=== PATIENT | female | born 1945 | race Hispanic/Latino ===

== ENCOUNTER 2017-04-05 09:56 | Outpatient (CLI) | payer MEDICARE ==
--- NOTE | 2017-04-05 11:49 | Mammography Report ---
BONE DEXA:04/05/17 09:56:00 CLINICAL: Postmenopausal. No comparison. TECHNIQUE: Two site bone DEXA performed on an Hologic scanner. FINDINGS: The average BMD of the lumbar spine L1-L4 is 0.770g/cm squared with a T-score of -2.5 and a Z-score of -0.3. The average BMD of the left hip is 0.708g/cm squared with a T-score of -1.9 and a Z-score of -0.3. IMPRESSION: 1. WHO classification: Osteoporosis with I. fracture risk based on lumbar spine measurements. 2. WHO classification: Osteopenia with increased fracture risk based on left hip measurements. RECOMMENDATION: Clinical correlation and routine screening. DEFINITIONS: BMD = Bone Mineral Density T-score = BMD related to mean peak bone mass of young adult (mean expressed in Standard Deviation) Z-score = Age matched BMD expressed in SD World Health Organization (WHO) Diagnostic Criteria Normal T-score > -1 SD Osteopenia T-score between -1 and -2.4 SD Osteoporosis T-score -2.5 SD or below NOTE: BMD is not the only risk factor for fracture. One should also consider factors such as the patient's age, risk of falling, previous osteoporotic fracture, family history of osteoporotic fractures, current smoker, and low body weight. Z-scores are not calculated if >80 years of age.
== END 2017-04-05 09:57 | disposition home or self-care (01) ==
LOC: SPVWC 09:56
PROVIDERS: ATTEND Family Medicine
DX: M81.0 Age-related osteoporosis without current pathological fracture (principal); M85.88 Other specified disorders of bone density and structure, other site; Z78.0 Asymptomatic menopausal state
CPT/HCPCS: 77080

== ENCOUNTER 2018-05-16 08:50 | Outpatient (CLI) | payer MEDICARE ==
--- NOTE | 2018-05-16 12:49 | Ultrasound Report ---
THYROID ULTRASOUND:05/16/18 08:50:00 CLINICAL: Abnormal thyroid test. FINDINGS: High-resolution ultrasound demonstrated a normal size thyroid with normal contour and normal overall echogenicity. No mass, nodule or cyst. The right lobe measures 3.5 x 1.4 x 1.1cm. The left lobe measures 3.3-1.5 x 1.0. The isthmus measures 1.9 mm AP thickness. IMPRESSION: Normal thyroid.
== END 2018-05-16 08:51 | disposition home or self-care (01) ==
LOC: SPVWC 08:50
PROVIDERS: ATTEND Family Medicine
DX: R94.6 Abnormal results of thyroid function studies (principal)
CPT/HCPCS: 76536

== ENCOUNTER 2021-10-19 12:13 | Outpatient (CLI) | payer MEDICARE ==
--- NOTE | 2021-10-19 13:02 | XRay Report ---
CHEST 2 VIEWS INDICATION / CLINICAL INFORMATION: COUGH. COMPARISON: None available. FINDINGS: SUPPORT DEVICES: None. HEART / MEDIASTINUM: No significant abnormality. LUNGS / PLEURA: Lungs are hyperexpanded without focal lung consolidation. No pneumothorax. ADDITIONAL FINDINGS: No significant additional findings. IMPRESSION: 1. No acute findings. Signer Name: Idris Charles MD Signed: 10/19/2021 12:58 PM Workstation Name: [email or web address]
== END 2021-10-19 12:14 | disposition home or self-care (01) ==
LOC: XRAY 12:13
PROVIDERS: ATTEND Family Medicine
DX: R05.1 Acute cough (principal)
CPT/HCPCS: 71046